=== PATIENT | male | born 1960 | race Caucasian/White ===

== ENCOUNTER 2018-02-03 07:45 | Day surgery (SDC) | payer BC ==
[~2018-02-03] VITALS: Ht 175.3 cm; Wt 79.4 kg
[2018-02-03] VITALS (8 sets, daily range): BP systolic 123–135; BP diastolic 72–81
[~2018-02-03 07:45] MED LIST: ACYCLOVIR200 MG ORAL; ATORVASTATIN CA20 MG ORAL; BRIMONIDINE TART5 ML BOTH EYES; COSOPT EYE DROP10 M1 OP; DESCOVY 200-251 EACH PO; LUMIGAN2.5 ML BOTH EYES; TIVICAY50 MG ORAL; ceFAZolin 1gm in D5W 55ml IVP SCH; celeBREX 200mg Cap **SURGERY PATIENTS ONLY ORAL SCH; oxyCONTIN 20mg tab ORAL SCH
[2018-02-03] MEDS ORDERED: Morphine Sulfate PF 0 ML ONE (09:18)
[2018-02-03] MEDS ORDERED: Bupivacaine 0.25% Inj 30ml INJ ONE (09:19)
[2018-02-03] MEDS ORDERED: EPINEPHrine 1mg/1ml Amp ONE (09:19)
[2018-02-03] MEDS ORDERED: Kenalog-40 1ml Vial ONE ×2 (09:19→09:20)
[2018-02-03] MEDS ORDERED: Ketorolac 30mg Inj ONE ×2 (09:19→10:09)
[2018-02-03] MEDS ORDERED: Ropivacaine 5mg/ml Vial 30ml INJ ONE ×2 (09:19→10:03)
[2018-02-03] MEDS ORDERED: Lidocaine 1% MPF 10mg/ml 5ml ONE ×2 (10:02→10:05)
[2018-02-03] MEDS ORDERED: fentaNYL 100 mcg/2 mL IV ONE ×2 (10:08→13:32)
[2018-02-03] MEDS ORDERED: Propofol 200mg/20ml IV ONE (10:09)
[2018-02-03] MEDS ORDERED: Midazolam 2mg/2ml Inj ONE (10:09)
--- NOTE | 2018-02-03 10:14 | Pre-Procedure Note/Attestation ---
Pre-Procedure Note/Attestation Complete Prior to Procedure Planned Procedure: right Procedure Narrative: shoulder arthroscopy, sad, possible rc repair Indications for Procedure Pre-Operative Diagnosis: right shoulder impingement Attestation I attest that I discussed the nature of the procedure; its benefits; risks and complications; and alternatives (and the risks and benefits of such alternatives ), prior to the procedure, with the patient (or the patient's legal service support representative). I attest that, if there was a reasonable possibility of needing a blood transfusion, the patient (or the patient's legal service support representative) was given the [facility] standardized written summary, pursuant to the [place] Blood Safety Act ([place] Health and Safety Code # 1645, as amended). I attest that I re-evaluated the patient just prior to the surgery and that there has been no change in the patient's H&P, except as documented below: TOM BADILLO Feb 03, 2018 10:14
--- NOTE | 2018-02-03 10:15 | Operative Note - PDOC ---
Operative Note Operative Note Pre-op Diagnosis: right shoulder impingement Procedure: see op report Post-op Diagnosis: same as pre-op plus Operative Findings: consistent w/pre-op dx studies Anesthesia: regional Specimen: none Complications: none Condition: stable Estimated Blood Loss: none Implant(s) used?: TOM Torres Feb 03, 2018 10:15
[2018-02-03] MEDS ORDERED: Succinylcholine 20mg/ml 10ml vial ONE (10:18)
[2018-02-03] MEDS ORDERED: Zemuron 50mg/5ml Inj IV ONE (10:18)
[2018-02-03] MEDS ORDERED: Lidocaine 1% 10mg/ml/Epi 0.005mg/ml 30ml vial INJ ONE (10:19)
[2018-02-03] MEDS ORDERED: LR 1000ml 1,000 ML IVLG SCH (11:11)
--- NOTE | 2018-02-03 11:11 | Anethesia Preoperative Eval ---
Anesthesia Pre-op PMH/ROS General Date of Evaluation: Feb 03, 2018 Time of Evaluation: 11:07 Anesthesiologist: Teodoro ASA Score: ASA 3 Mallampati Score Class I : Soft palate, uvula, fauces, pillars visible Class II: Soft palate, uvula, fauces visible Class III: Soft palate, base of uvula visible Class IV: Only hard plate visible Mallampati Classification: Class II Surgeon: Bong Diagnosis: R shoulder pain Surgical Procedure: R shoulder scope Anesthesia History: none Family History: no anesthesia problems Allergies: Coded Allergies: No Known Allergies (Unverified , 02/02/18) Medications: see eMAR Past Medical History Cardiovascular: Denies: HTN, CAD, [place], valve dz, arrhythmia, other Pulmonary: Denies: asthma, COPD, ERNESTO, other Gastrointestinal/Genitourinary: Reports: GERD; Denies: CRI, ESRD, other Neurologic/Psychiatric: Reports: depression/anxiety; Denies: dementia, CVA, TIA, other Endocrine: Denies: DM, hypothyroidism, steroids, other HEENT: Reports: glaucoma; Denies: cataract (L), cataract (R), [place] (L), [place] (R), other Hematology/Immune: Reports: other - HIV stable on meds; Denies: anemia, DVT, bleeding disorder Musculoskeletal/Integumentary: Denies: OA, RA, DJD, DDD, edema, other PMH Narrative: as above PSxH Narrative: GA with ETT R brachial plexus block Anesthesia Pre-op Phys. Exam Physician Exam Last Vital Signs Date Time Temp Pulse Resp B/P (MAP) Pulse Ox O2 Delivery O2 Flow Rate FiO2 02/03/18 08:54 97.9 54 20 123/80 99 Room Air 97.9 Constitutional: NAD Neurologic: CN 2-12 intact Cardiovascular: RRR Respiratory: CTA Gastrointestinal: S/NT/ND Airway Exam Mallampati Score: Class II MO: limited Neck: stiff ROM: full Teeth: intact Dentures: no upper, no lower Anesthesia Pre-op A/P Labs see chart Studies Pre-op Studies: EKG - NSR Risk Assessment & Plan Assessment: ASA 3 Plan: GA with ETT Status Change Before Surgery: No Pre-Antibiotics Drug: Ancef 1 gr. Given Within 1 Hr of Incision: Yes Time Given: 11:22 DARNELL VILA M.D. Feb 03, 2018 11:11
[2018-02-03] MEDS ORDERED: Meperidine 50mg/ml Inj(FOR RIGORS ONLY) IV PRN (11:15)
[2018-02-03] MEDS ORDERED: DiphenhydrAMINE 50mg/ml Inj IVP PRN (11:15)
[2018-02-03] MEDS ORDERED: Midazolam 2mg/2ml Inj IVP PRN (11:15)
[2018-02-03] MEDS ORDERED: Ketorolac 30mg Inj IV PRN (11:15)
[2018-02-03] MEDS ORDERED: NS Irrig 4000ml IRRIG ONE ×2 (11:23→13:00)
[2018-02-03] MEDS ORDERED: Sterile Water Irrig 1000ml IRRIG ONE (13:00)
[2018-02-03] MEDS ORDERED: Neostigmine 1mg/ml 10ml Inj ONE (13:00)
[2018-02-03] MEDS ORDERED: LR 1000ml ONE (13:00)
[2018-02-03] MEDS ORDERED: Glycopyrrolate 0.2mg/ml 1ml Vial ONE (13:32)
[2018-02-03] MEDS ORDERED: Atropine Sulfate 0.4mg/ml inj ONE (13:36)
[2018-02-03] MEDS ORDERED: ePHEDrine 50mg/ml Inj ONE (13:38)
[2018-02-03] MEDS ORDERED: Sodium Chloride 10ml vial INJ ONE (13:39)
--- NOTE | 2018-02-03 16:13 | Immediate Post-Op Evaluation ---
Immediate Post-Op Evalulation Immediate Post-Op Evalulation Procedure: R shoulder scope, SA decompression , RC repair Date of Evaluation: Feb 03, 2018 Time of Evaluation: 14:41 IV Fluids: 1200 Blood Products: none Estimated Blood Loss: 50 Urinary Output: none Blood Pressure Systolic: 108 Blood Pressure Diastolic: 58 Pulse Rate: 72 Respiratory Rate: 20 O2 Sat by Pulse Oximetry: 98 Temperature (Fahrenheit): 97.8 Pain Score (1-10): 2 Nausea: No Vomiting: No Complications none Patient Status: awake, patent, extubated, none Hydration Status: adequate DARNELL VILA M.D. Feb 03, 2018 16:13
--- NOTE | 2018-02-03 16:16 | 48 Hour Post Anesthesia Eval ---
Post Anesthesia Evaluation Procedure: R shoulder scope, SA decompression , RC repair Date of Evaluation: Feb 03, 2018 Time of Evaluation: 16:14 Blood Pressure Systolic: 128 0: 72 Pulse Rate: 68 Respiratory Rate: 20 Temperature (Fahrenheit): 97.6 O2 Sat by Pulse Oximetry: 98 Airway: patent Nausea: No Vomiting: No Pain Intensity: 2 Hydration Status: adequate Cardiopulmonary Status: stable Mental Status/LOC: patient returned to baseline Follow-up Care/Observations: n/a Post-Anesthesia Complications: none Follow-up care needed: ready to discharge DARNELL VILA M.D. Feb 03, 2018 16:16
[2018-02-03] MEDS ORDERED: D5 1/2NS 1,000 ML IV SCH (19:01)
[2018-02-03] MEDS ORDERED: Tylenol #3 tab (300mg/30mg) ORAL PRN (19:01)
[2018-02-03] MEDS ORDERED: Norco 5mg/325mg tab ORAL PRN (19:01)
--- NOTE | 2018-02-03 23:45 | Operative Note - Dictated ---
DATE OF OPERATION: 02/03/2018 PREOPERATIVE DIAGNOSES: 1. Right shoulder high-grade partial rotator cuff tear. 2. Impingement syndrome. 3. Acromioclavicular joint arthropathy. POSTOPERATIVE DIAGNOSES: 1. High-grade full-thickness rotator cuff tear. 2. Tear of the long head of the biceps. 3. Impingement. 4. Acromioclavicular joint arthropathy. PROCEDURES: 1. Right shoulder arthroscopy and SLAP repair. 2. Biceps tenotomy. 3. Right shoulder arthroscopy, extensive articular debridement, and right shoulder arthroscopic rotator cuff repair. 4. Right shoulder subacromial decompression bursectomy. 5. Right shoulder AC joint coplaning. SURGEON: Tremaine Woody M.D. ANESTHESIA: Interscalene with general. INDICATION FOR PROCEDURE: The patient is a pleasant gentleman, who had sustained a fall to his right shoulder, he had significant pain, difficulty with overhead activities, physical therapy, pain and difficulty with overhead activities. He had MRI, which showed a high-grade possible full-thickness rotator cuff tear. Given that he had failed conservative treatment, he elected to undergo right shoulder arthroscopy, possible rotator cuff repair. Risks, limitations, expectations, and complications of procedure were discussed in detail including continued pain, need for future surgery, risk of anesthesia, medical complications, DVT, PE, and mortality risks. All questions were addressed. DESCRIPTION OF PROCEDURE: After informed consent was obtained, the patient was brought to the operating room where the patient was placed under interscalene general anesthesia. The patient then carefully placed in the beach-chair position. Right shoulder was prepped and draped in a sterile manner. Time-out was performed. Inferolateral stab incision was then made. Trocar was introduced into the glenohumeral joint. There is no chondral damage. Anterior labrum appeared to be intact. There is a tear of the long head of the biceps tendon with a stump of the biceps tendon that was floating intra-articular. Medial anterior working portal was established. The long head of the biceps tendon remaining stump was debrided down to the superior labrum. Once that was done, the undersurface of the rotator cuff was identified and was noted to have significant inflammation and tearing of the footprint of the supraspinatus and the infraspinatus. A spinal needle was then placed through this area. The camera was repositioned in the subacromial space and complete bursectomy was performed. Undersurface of the acromion was identified. Acromioplasty was started from lateral to medial, completed from posterior to anterior. The area where the spinal needle was showed an area of tearing along the rotator cuff. This tissue was debrided. Camera was repositioned in the glenohumeral joint. A trocar was then used to place the arthroscopic anchor right at the articular margin. Once this was done, 2 mattress sutures were placed through the tissue along with lateral row. The camera was repositioned in the glenohumeral joint. The footprint was completely re-created. The AC joint was coplaned. Instruments were then removed. The skin was closed using 3-0 Monocryl sutures. ESTIMATED BLOOD LOSS: None. COMPLICATIONS: None. SPECIMENS: None. IMPLANTS: Two arthroscopic rotator cuff anchors. Tremaine Woody M.D. DR: DEMI JOB#: [id number] CC:
== END 2018-02-03 16:40 | disposition home or self-care (01) ==
LOC: SUR 07:45
DX: M75.111 Incomplete rotator cuff tear or rupture of right shoulder, not specified as traumatic (principal); S46.111A Strain of muscle, fascia and tendon of long head of biceps, right arm, initial encounter; M19.011 Primary osteoarthritis, right shoulder; Z79.82 Long term (current) use of aspirin; K21.9 Gastro-esophageal reflux disease without esophagitis; F41.9 Anxiety disorder, unspecified; F32.9 Major depressive disorder, single episode, unspecified; Z21 Asymptomatic human immunodeficiency virus [HIV] infection status; X58.XXXA Exposure to other specified factors, initial encounter; Y93.9 Activity, unspecified; Y92.9 Unspecified place or not applicable
CPT/HCPCS: 29807; 29826; 29827; 29828; J0171; J0330; J0461; J0690; J1885; J2250; J2704; J2795; J3010; J3490; 94003; 94150; C1713; J2710